=== PATIENT | male | born 1980 | race Caucasian/White ===

== ENCOUNTER → 2018-11-18 19:35 | Outpatient (CLI) | payer OTHER, SELFPAY ==
[2018-11-18 22:00] LABS: Urine N gonorrhoeae NOT DETECTED
[2018-11-18 22:06] LABS: Urine Chlamydia NOT DETECTED
[2018-11-19 01:27] LABS: Hepatitis B Surface Antigen NEGATIVE s/c (NEGATIVE)
[2018-11-19 01:54] LABS: HIV 1 and 2 Antibody NEGATIVE (NEGATIVE); Hep C Virus Ab w/Reflex Quant NEGATIVE s/c (NEGATIVE)
[2018-11-21 14:36] LABS: RPR Screen Nonreactive (Nonreactive)
[2018-11-21 16:41] LABS: HSV 1 IgM Screen Negative (Negative); HSV 2 IgM Screen Negative (Negative)
== END ==
PROVIDERS: Visit Provider Physician Assistant
DX: Z11.3 Encounter for screening for infections with a predominantly sexual mode of transmission (principal)
CPT/HCPCS: 86592; 86695; 86696; 86703; 86803; 87252; 87340; 87491; 87591

== ENCOUNTER → 2021-10-25 08:08 | Outpatient (CLI) | payer OTHER, SELFPAY ==
[2021-10-25 18:42] LABS: Alanine Aminotransferase 27 IU/L (<50); Albumin 4.3 g/dL (3.5-5.0); Albumin Globulin Ratio 1.4 (1.0-2.8); Alkaline Phosphatase 58 U/L (38-126); Aspartate Aminotransferase 27 IU/L (17-59); BUN Creatinine Ratio 22.4 (6-22); Bilirubin Total 0.6 mg/dL (0.2-1.3); Blood Urea Nitrogen 17 mg/dL (9-20); Calcium 8.7 mg/dL (8.4-10.2); Carbon Dioxide 30 mmol/L (22-32); Chloride 104 mmol/L (98-107); Cholesterol 207 mg/dL (140-199); Estimated Glomerular Filt Rate > 60 mL/min (>60); Globulin 3.1 g/dL (1.7-4.1); Glucose 90 mg/dL (70-100); HDL Cholesterol 57 mg/dL (40-60); HEMOLYSIS < 15 (0-50); LDL Cholesterol Calculated 129 mg/dL (<100); Sodium 141 mmol/L (137-145); Total Protein 7.4 g/dL (6.3-8.2); Triglycerides 103 mg/dL (35-150)
[2021-10-25 18:50] LABS: Add Manual Diff / Slide Review NO; Basophils Absolute Auto 0 /uL (0-100); Basophils Percent Auto 0.7 % (0-2); Eosinophils Absolute Auto 100 /uL (0-450); Eosinophils Percent Auto 1.2 % (2-4); Hematocrit 43.8 % (41-53); Lymphocytes Absolute Auto 1400 /uL (1100-4500); Lymphocytes Percent Auto 23.6 % (25-40); Mean Corpuscular HGB Conc 34.2 % (30-36); Mean Corpuscular Hemoglobin 30.5 PG (26-34); Mean Corpuscular Volume 89.2 fL (80-100); Monocytes Absolute Auto 400 /uL (0-900); Neutrophils Absolute Auto 4000 /uL (1500-7000); Neutrophils Percent Auto 68.5 % (50-75); Platelet Count 256 X10^3/uL (150-400); Red Blood Cell Count 4.92 X10^6/uL (4.5-5.9); Red Cell Distribution Width 13.8 % (11.6-14.8); White Blood Cell Count 5.9 X10^3/uL (4.5-11.0)
[2021-10-25 19:12] LABS: Prostate Specific Antigen Scrn 0.852 ng/mL (0.1-4.0)
[2021-10-25 19:20] LABS: TSH w/ Reflex to FT4 0.93 uIU/mL (0.47-4.68)
[2021-11-03 19:44] LABS: Percent Free Testosterone 3.21 % (1.50-4.20); Testosterone Free 12.45 ng/dL (5.00-21.00); Testosterone Total 387.7 ng/dL (264.0-916.0)
== END ==
PROVIDERS: PCP Physician Assistant; Visit Provider Physician Assistant
DX: I10 Essential (primary) hypertension (principal); N52.9 Male erectile dysfunction, unspecified; Z13.220 Encounter for screening for lipoid disorders; Z12.5 Encounter for screening for malignant neoplasm of prostate
CPT/HCPCS: 80053; 80061; 84402; 84403; 84443; 85025; G0103

== ENCOUNTER → 2022-09-07 08:49 | Outpatient (CLI) | payer OTHER, SELFPAY ==
--- NOTE | 2022-09-07 08:50 | DI.CT.S_ITS ---
PROCEDURE: CT MASTOID TEMPORAL INDICATIONS: barotrauma event 07/06/2022 - worsening vertigo (after improve COMPARISON: None. TECHNIQUE: Noncontrast 0.6 mm thick axial sections acquired through each temporal bone separately. Coronal images are reformatted. FINDINGS: Image quality: Excellent. RIGHT: External auditory canal: Canal has a normal appearance. Tympanic membrane not well visualized Middle ear: The middle ear structures, including the ossicles, appear normal. No abnormal fluid or soft tissue density. Inner ear: Inner ear is normally formed and appears unremarkable. Facial nerve appears normal throughout is course. Mastoids: Minimal patchy fluid noted at the mastoid tip LEFT: External auditory canal: Canal has a normal appearance. Middle ear: The middle ear structures, including the ossicles, appear normal. No abnormal fluid or soft tissue density. Inner ear: Inner ear is normally formed and appears unremarkable. Facial nerve appears normal throughout its course. Mastoids: Mild patchy mastoid tip MISCELLANEOUS: Visualized surrounding bones appear unremarkable. Visualized intracranial structures, including the cerebellopontine angle cisterns, appear normal. IMPRESSION: Tympanic membrane not well visualized bilaterally. Correlate with direct visualization. Minimal fluid in both mastoid tips may be inflammatory or postinflammatory Approved by: Trever Adkins M.D. on 09/07/2022 at 14:54
== END ==
PROVIDERS: PCP Family Medicine; Referring Provider Family Medicine; Visit Provider Family Medicine
DX: R42 Dizziness and giddiness (principal); T70.29XA Other effects of high altitude, initial encounter; H93.11 Tinnitus, right ear
CPT/HCPCS: 70480

== ENCOUNTER → 2022-10-16 13:27 | Outpatient (CLI) | payer OTHER, SELFPAY ==
[2022-10-16 19:44] LABS: Add Manual Diff / Slide Review NO; Basophils Absolute Auto 0 /uL (0-100); Basophils Percent Auto 0.2 % (0-2); Eosinophils Absolute Auto 0 /uL (0-450); Hematocrit 42.7 % (41-53); Hemoglobin 14.4 g/dL (13.5-17.5); Lymphocytes Absolute Auto 700 /uL (1100-4500); Lymphocytes Percent Auto 9.4 % (25-40); Mean Corpuscular HGB Conc 33.7 % (30-36); Mean Corpuscular Hemoglobin 29.7 PG (26-34); Mean Corpuscular Volume 88.4 fL (80-100); Monocytes Absolute Auto 100 /uL (0-900); Monocytes Percent Auto 1.2 % (3-14); Neutrophils Absolute Auto 6800 /uL (1500-7000); Neutrophils Percent Auto 89.2 % (50-75); Platelet Count 274 X10^3/uL (150-400); Red Blood Cell Count 4.84 X10^6/uL (4.5-5.9); Red Cell Distribution Width 13.5 % (11.6-14.8); White Blood Cell Count 7.7 X10^3/uL (4.5-11.0)
[2022-10-16 19:47] LABS: Alanine Aminotransferase 46 IU/L (<50); Albumin Globulin Ratio 1.3 (1.0-2.8); Alkaline Phosphatase 71 U/L (38-126); Aspartate Aminotransferase 28 IU/L (17-59); BUN Creatinine Ratio 16.9 (6-22); Bilirubin Total 0.4 mg/dL (0.2-1.3); Blood Urea Nitrogen 15 mg/dL (9-20); Calcium 8.7 mg/dL (8.4-10.2); Carbon Dioxide 24 mmol/L (22-32); Chloride 102 mmol/L (98-107); Cholesterol 210 mg/dL (140-199); Estimated Glomerular Filt Rate > 60 mL/min (>60); Glucose 211 mg/dL (70-100); HDL Cholesterol 62 mg/dL (40-60); HEMOLYSIS < 15 (0-50); LDL Cholesterol Calculated 131 mg/dL (<100); Sodium 137 mmol/L (137-145); Triglycerides 84 mg/dL (35-150)
[2022-10-16 19:49] LABS: Potassium 4.2 mmol/L (3.4-5.1)
[2022-10-16 20:11] LABS: TSH w/ Reflex to FT4 0.22 uIU/mL (0.47-4.68)
== END ==
PROVIDERS: PCP Family Medicine; Visit Provider Family Medicine
DX: I10 Essential (primary) hypertension (principal); Z13.6 Encounter for screening for cardiovascular disorders
CPT/HCPCS: 80053; 80061; 84439; 84443; 85025

== ENCOUNTER → 2022-10-22 08:40 | Outpatient (CLI) | payer OTHER, SELFPAY ==
[2022-10-22 10:11] LABS: Alanine Aminotransferase 63 IU/L (<50); Albumin 4.4 g/dL (3.5-5.0); Albumin Globulin Ratio 1.5 (1.0-2.8); Alkaline Phosphatase 72 U/L (38-126); Aspartate Aminotransferase 41 IU/L (17-59); BUN Creatinine Ratio 21.7 (6-22); Bilirubin Total 0.6 mg/dL (0.2-1.3); Blood Urea Nitrogen 15 mg/dL (9-20); Calcium 8.7 mg/dL (8.4-10.2); Carbon Dioxide 30 mmol/L (22-32); Chloride 100 mmol/L (98-107); Estimated Glomerular Filt Rate > 60 mL/min (>60); Glucose 87 mg/dL (70-100); HEMOLYSIS < 15 (0-50); Potassium 3.7 mmol/L (3.4-5.1); Sodium 138 mmol/L (137-145); Total Protein 7.4 g/dL (6.3-8.2)
[2022-10-22 10:28] LABS: Free T3, Triiodothyronine Free 4.57 pg/mL (2.77-5.27)
[2022-10-22 10:42] LABS: Thyroid Stimulating Hormone 1.43 uIU/mL (0.47-4.68)
[2022-10-23 08:37] LABS: x Labcorp Estim. Avg Glu (eAG) 114 mg/dL (.); x Labcorp Hemoglobin A1c 5.6 % (4.8-5.6)
[2022-10-23 20:44] LABS: Anti Thyroglobulin Antibody <1.0 IU/mL (0.0-0.9); Thyroid Peroxidase Antibodies 14 IU/mL (0-34)
== END ==
PROVIDERS: PCP Family Medicine; Referring Provider Family Medicine; Visit Provider Family Medicine
DX: R73.9 Hyperglycemia, unspecified (principal); I10 Essential (primary) hypertension; R79.89 Other specified abnormal findings of blood chemistry
CPT/HCPCS: 36415; 80053; 83036; 84439; 84443; 84481; 86376; 86800

== ENCOUNTER → 2023-03-20 10:02 | Outpatient (CLI) | payer OTHER, SELFPAY ==
--- NOTE | 2023-03-20 10:03 | DI.US.S_ITS ---
PROCEDURE: US ABDOMEN LIMITED INDICATIONS: ELEVATED ALT TECHNIQUE: Real-time focused scanning was performed of the abdomen, with image documentation. COMPARISON: [facility], CT, CT CHEST ABD PELVIS W CON, 03/06/2017, 17:55. FINDINGS: The liver is echogenic. Increased attenuation of the ultrasound beam limits evaluation of the liver parenchyma. Liver length of 18.4 centimeters. No gallstones, gallbladder wall thickening, or sonographic Kruse sign. Extrahepatic bile duct not well visualized due to bowel gas. No intrahepatic ductal dilation identified. Visualized pancreas unremarkable sonographically. IMPRESSION: The liver is echogenic, a nonspecific finding commonly seen in the setting of steatosis. Dictated by: Ronnie Robles M.D. on 03/20/2023 at 14:14 Approved by: Ronnie Robles M.D. on 03/20/2023 at 14:21
--- NOTE | 2023-03-20 11:26 | DI.MRI.S_ITS ---
PROCEDURE: MR BRAIN (IAC) WWO CON INDICATIONS: dizziness, hearing loss, headache TECHNIQUE: Noncontrast sagittal T1 spin echo, axial FLAIR, axial gradient echo, axial diffusion and ADC through the brain. Axial thin-slice 3D CISS, coronal TruFISP, axial T1 spin echo with fat saturation through the internal auditory canals. After the administration of contrast, thin slice axial and coronal T1 spin echo with fat saturation through the internal auditory canals, and axial and coronal and sagittal T1 spin echo with fat saturation through the brain. COMPARISON: [facility], MR, MR BRAIN WITH/WITHOUT CONTRAST, 09/06/2022, 16:05. FINDINGS: Image quality: Excellent. Cerebellopontine angles: No cerebellopontine angle masses. Inner ear structures appear normally formed. No suspicious enhancement in the internal auditory canal or along the course of the 7th cranial nerve. CSF spaces: Ventricles are normal in size and shape. No extra-axial fluid collections. Basal cisterns are patent. Brain: No intracranial bleeds or mass effects. Lindsey-white matter interface is intact. No abnormal intracranial enhancement. Mild chronic small vessel ischemic changes. Diffusion weighted images demonstrate no acute ischemic insults. Brainstem appears normal. Normal intravascular flow voids are present. Skull and face: Calvarial marrow signal is normal. Orbits appear normal. Sinuses: Mild diffuse paranasal sinus mucosal thickening. Trace mastoid fluid. IMPRESSION: 1. No cause for patient's symptoms are identified. 2. The cerebellopontine angles and internal auditory canals are normal in appearance without evidence of mass or abnormal enhancement. 3. No acute intracranial abnormalities. Dictated by: Bill Viramontes M.D. on 03/20/2023 at 13:40 Approved by: Bill Viramontes M.D. on 03/20/2023 at 13:46
== END ==
PROVIDERS: PCP Family Medicine; Referring Provider Family Medicine; Visit Provider Family Medicine
DX: R42 Dizziness and giddiness (principal); H91.90 Unspecified hearing loss, unspecified ear; R26.89 Other abnormalities of gait and mobility; R74.01 Elevation of levels of liver transaminase levels
CPT/HCPCS: 70553; 76705; A9579

== ENCOUNTER → 2023-04-13 12:41 | Outpatient (CLI) | payer OTHER, SELFPAY ==
[2023-04-13 14:08] LABS: HEMOLYSIS < 15 (0-50)
[2023-04-13 14:15] LABS: Alanine Aminotransferase 68 IU/L (<50); Albumin 4.3 g/dL (3.5-5.0); Albumin Globulin Ratio 1.3 (1.0-2.8); Alkaline Phosphatase 69 U/L (38-126); Aspartate Aminotransferase 33 IU/L (17-59); BUN Creatinine Ratio 17.3 (6-22); Bilirubin Total 0.5 mg/dL (0.2-1.3); Blood Urea Nitrogen 14 mg/dL (9-20); Calcium 9.2 mg/dL (8.4-10.2); Carbon Dioxide 27 mmol/L (22-32); Chloride 101 mmol/L (98-107); Estimated Glomerular Filt Rate > 60 mL/min (>60); Globulin 3.3 g/dL (1.7-4.1); Glucose 83 mg/dL (70-100); HEMOLYSIS < 15 (0-50); Potassium 4.2 mmol/L (3.4-5.1); Sodium 137 mmol/L (137-145); Total Protein 7.6 g/dL (6.3-8.2)
[2023-04-13 14:45] LABS: TSH w/ Reflex to FT4 1.04 uIU/mL (0.47-4.68)
[2023-04-13 14:49] LABS: Ferritin 115 ng/mL (18-464)
[2023-04-13 15:36] LABS: Total Iron Binding Capacity 335 ug/dL (261-462); Transferrin 245 mg/dL (206-381)
[2023-04-13 16:11] LABS: Iron 97 ug/dL (49-181); Percent Iron Saturation 29 % (20-50)
[2023-04-14 08:29] LABS: Hepatitis B Core Antibody Negative (Negative)
[2023-04-14 10:36] LABS: HBsAg Screen Negative (Negative); Hepatitis A Antibody IgM Negative (Negative); Hepatitis B Core Antibody IgM Negative (Negative); Hepatitis C Antibody Non Reactive (Non Reactive)
[2023-04-15 09:22] LABS: Hepatitis B Surf Ab Qualitativ Non Reactive (.)
[2023-04-16 15:08] LABS: Albumin 3.7 g/dL (2.9-4.4); Alpha-1-Globulin 0.2 g/dL (0.0-0.4); Alpha-2-Globulin 0.7 g/dL (0.4-1.0); Gamma Globulin 1.2 g/dL (0.4-1.8); Globulin Total 3.2 g/dL (2.2-3.9); Protein, Total 6.9 g/dL (6.0-8.5)
[2023-04-16 19:14] LABS: Free Kappa Lt Chains, Serum 20.9 mg/L (3.3-19.4); Free Lambda Lt Chains,Serum 18.1 mg/L (5.7-26.3)
== END ==
PROVIDERS: PCP Family Medicine; Referring Provider Family Medicine; Visit Provider Family Medicine
DX: R74.01 Elevation of levels of liver transaminase levels (principal); G62.9 Polyneuropathy, unspecified
CPT/HCPCS: 36415; 80053; 80074; 82728; 83540; 83550; 83883; 84155; 84165; 84443; 86704; 86706